=== PATIENT | male | born 1965 | race Caucasian/White ===

== ENCOUNTER 2019-08-30 01:47 | Emergency (ER) | payer MEDICARE ==
[~2019-08-30] VITALS: Ht 190.5 cm; Wt 138.6 kg
[2019-08-30 01:48] VITALS: BP 144/82
[2019-08-30] MEDS ORDERED: BISO5TAB9 PO (02:04)
[2019-08-30] MEDS ORDERED: METF10004 PO (02:04)
[2019-08-30] MEDS ORDERED: LOSA50TA88 PO (02:04)
[2019-08-30] MEDS ORDERED: FLUORESCEIN OPHTH 1 MG STRIP OU ONE (03:15)
[2019-08-30] MEDS ORDERED: TETRACAINE 0.5% OPHTH SOLN 4ML OU ONE (03:15)
[2019-08-30] MEDS ORDERED: ERYT1OIN26 OD (03:56)
[2019-08-30] MEDS ORDERED: ERYTHROMYCIN OPHTH OINT OD ONE (04:00)
== END 2019-08-30 04:21 | disposition home or self-care (01) ==
LOC: M ED 01:47
DX: S05.01XA Injury of conjunctiva and corneal abrasion without foreign body, right eye, initial encounter (principal); W45.8XXA Other foreign body or object entering through skin, initial encounter; Y92.89 Other specified places as the place of occurrence of the external cause; Y93.H3 Activity, building and construction; E11.9 Type 2 diabetes mellitus without complications; I10 Essential (primary) hypertension; Z79.899 Other long term (current) drug therapy